=== PATIENT | female | born 1985 | race Caucasian/White ===

== ENCOUNTER 2021-04-15 18:17 | Emergency (ER) | payer OTHER ==
[2021-04-15] MEDS ORDERED: LORazepam 2 MG/ML INJ IV STA ×2 (18:20→18:56)
[2021-04-15] MEDS ORDERED: SODIUM CHLORIDE 0.9% 500 ML 500 ML IV STA (18:20)
[2021-04-15 18:37] LABS: Appearance,Urine Clear (Clear); Bilirubin,Urine Negative (Negative); Blood,Urine Negative (Negative); Color,Urine Light Yellow; Glucose,Urine (UA) Negative (Negative); Ketones,Urine Negative (Negative); Leukocyte Esterase,Urine Moderate (Negative); Nitrite,Urine Negative (Negative); Protein,Urine Negative (Negative); Specific Gravity,Urine 1.005 (1.001-1.035); Squamous Epithelial Cell,Urine 1 /hpf (0-4); Urobilinogen,Urine <2.0 mg/dL (<2.0); WBC,Urine 1 /hpf (0-5)
[2021-04-15 18:40] LABS: Basophils % (A) 0 %; Eosinophils # (A) 0.1 k/uL (0-0.7); Eosinophils % (A) 1 %; HCT 36.6 % (34.0-46.0); HGB 12.4 gm/dL (11.4-16.0); Lymphocytes # (A) 1.2 k/uL (1.0-4.8); Lymphocytes % (A) 17 %; MCH 31.6 pg (25.0-35.0); Mean Platelet Volume 7.4; Monocytes # (A) 0.2 k/uL (0-1.0); Monocytes % (A) 3 %; Neutrophils # (A) 5.6 k/uL (1.3-7.7); Neutrophils % (A) 77 %; Platelet Count 229 k/uL (150-450); RBC 3.93 m/uL (3.80-5.40); RDW 12.7 % (11.5-15.5); WBC 7.2 k/uL (3.8-10.6)
[2021-04-15 18:50] LABS: ALT 22 U/L (4-34); AST 29 U/L (14-36); Acetaminophen <10.0 ug/mL; African American GFR (CKD) >90 (>60 ml/min/1.73 sqM); Alcohol <10 mg/dL; Alkaline Phosphatase 96 U/L (38-126); Anion Gap 9 mmol/L; Blood Urea Nitrogen 9 mg/dL (7-17); Calcium 9.5 mg/dL (8.4-10.2); Carbon Dioxide 18 mmol/L (22-30); Chloride 107 mmol/L (98-107); Glucose 95 mg/dL (74-99); Non-African American GFR(CKD) >90 (>60 ml/min/1.73 sqM); Potassium 4.4 mmol/L (3.5-5.1); Salicylate <1.0 mg/dL; Sodium 134 mmol/L (137-145); Total Bilirubin 0.3 mg/dL (0.2-1.3); Total Protein 6.8 g/dL (6.3-8.2)
[2021-04-15] MEDS ORDERED: levETIRAcetam IV 1,000 MG in SALINE 1 100ML.BAG IVPB STA (19:19)
--- NOTE | 2021-04-15 19:25 | ED ---
General Adult HPI - General Chief complaint: Seizure Stated complaint: seizure Time Seen by Provider: 04/15/21 18:20 Source: patient, RN notes reviewed, old records reviewed Mode of arrival: ambulatory Limitations: no limitations - History of Present Illness Initial comments: 35-year-old female presenting from [facility] with seizure. Patient had rec urrent seizures lasting up to 1 minute. She states that she began feeling bilateral hand cramps and numbness after taking Suboxone. She had taken 2 doses this afternoon beginning at approximately 2 PM. 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 Denied alcohol abuse. Patient was transported for urgent evaluation. She did have a seizure with EMS lasting less than 1 minute. This was tonic- clonic. She was previously treated for seizure disorder on Keppra but had been seizure free for a long period time and had her Keppra discontinued. She is currently not on any antiepileptics. - Related Data Home Medications Medication Instructions Recorded Confirmed Acetaminophen [Tylenol 8 Hour] 650 mg PO TID PRN 04/15/21 04/15/21 Calcium,Magnes,Zinc,Vit D3 1 tab PO TID PRN 04/15/21 04/15/21 Chlorpheniramine Maleate 4 mg PO Q4H PRN 04/15/21 04/15/21 Docusate [Colace] 100 mg PO BID PRN 04/15/21 04/15/21 Ibuprofen [Motrin Ib] 600 mg PO Q8H PRN 04/15/21 04/15/21 Magnesium Hydroxide [Milk of 2,400 mg PO BID PRN 04/15/21 04/15/21 Magnesia] Omeprazole *Unknown Strength* 1 dose PO DAILY PRN 04/15/21 04/15/21 Subutex 4mg 4 mg SL DIRECTED 04/15/21 04/15/21 cloNIDine HCL [Catapres] 0.1 mg PO Q4H PRN 04/15/21 04/15/21 ondansetron HCL [Zofran] 8 mg PO Q6H PRN 04/15/21 04/15/21 traZODone HCL [Desyrel] 50 - 150 mg PO HS PRN 04/15/21 04/15/21 Previous Rx's Medication Instructions Recorded levETIRAcetam [Keppra] 500 mg PO BID #60 tab 04/15/21 Allergies Allergy/AdvReac Type Severity Reaction Status Date / Time No Known Allergies Allergy Verified 04/15/21 18:41 Review of Systems ROS Statement: Those systems with pertinent positive or pertinent negative responses have been documented in the HPI. ROS Other: All systems not noted in ROS Statement are negative. Past Medical History Past Medical History: Seizure Disorder History of Any Multi-Drug Resistant Organisms: None Reported Past Surgical History: Orthopedic Surgery Past Psychological History: No Psychological Hx Reported Smoking Status: Current every day smoker Past Alcohol Use History: None Reported Past Drug Use History: Heroin General Exam Limitations: no limitations General appearance: alert, anxious Head exam: Present: atraumatic, normocephalic Eye exam: Present: normal appearance, PERRL ENT exam: Present: normal exam Neck exam: Present: normal inspection. Absent: tenderness, meningismus Respiratory exam: Present: normal lung sounds bilaterally. Absent: respiratory distress, wheezes Cardiovascular Exam: Present: regular rate, normal rhythm Extremities exam: Present: other (Bilateral hand spasm) Neurological exam: Present: alert, oriented X3, CN II-XII intact. Absent: motor sensory deficit Psychiatric exam: Present: normal affect, normal mood Skin exam: Present: warm, dry, intact. Absent: cyanosis, diaphoretic Course Vital Signs 04/15/21 18:19 Temperature 99.5 F Pulse Rate 104 H Respiratory 18 Rate Blood Pressure 129/79 EKG Findings - EKG Comments: EKG Findings:: EKG: Normal sinus rhythm, rate of 98, NE interval 146, QRS duration 78, QTC 446, no ST segment elevation. Medical Decision Making - Medical Decision Making 35-year-old female presented with recurrent seizure and opiate withdrawal. Given IV fluid, Ativan upon arrival. Loaded with Keppra she was previously on this medication. She did have some carpal spasm. No focal neurological findings. Patient has stable vitals. She is in sinus rhythm. She has normal CBC, normal CMP, normal calcium, normal ionized calcium. Normal magnesium. Normal urinalysis. She had been given IV fluids, Ativan and Keppra in the emergency prompt. Feeling better. She will be restarted on Keppra and given follow-up with neurology. Return parameters were discussed. - Lab Data Result diagrams: 04/15/21 18:27 04/15/21 18:27 Lab Results 04/15/21 04/15/21 04/15/21 Range/Units 18:27 18:27 18:27 WBC 7.2 (3.8-10.6) k/uL RBC 3.93 (3.80-5.40) m/uL Hgb 12.4 (11.4-16.0) gm/dL Hct 36.6 (34.0-46.0) % MCV 93.0 (80.0-100.0) fL MCH 31.6 (25.0-35.0) pg MCHC 34.0 (31.0-37.0) g/dL RDW 12.7 (11.5-15.5) % Plt Count 229 (150-450) k/uL MPV 7.4 Neutrophils % 77 % Lymphocytes % 17 % Monocytes % 3 % Eosinophils % 1 % Basophils % 0 % Neutrophils # 5.6 (1.3-7.7) k/uL Lymphocytes # 1.2 (1.0-4.8) k/uL Monocytes # 0.2 (0-1.0) k/uL Eosinophils # 0.1 (0-0.7) k/uL Basophils # 0.0 (0-0.2) k/uL Sodium 134 L (137-145) mmol/L Potassium 4.4 (3.5-5.1) mmol/L Chloride 107 (98-107) mmol/L Carbon Dioxide 18 L (22-30) mmol/L Anion Gap 9 mmol/L BUN 9 (7-17) mg/dL Creatinine 0.67 (0.52-1.04) mg/dL Est GFR (CKD-EPI)AfAm >90 (>60 ml/min/1.73 sqM) Est GFR (CKD-EPI)NonAf >90 (>60 ml/min/1.73 sqM) Glucose 95 (74-99) mg/dL Calcium 9.5 (8.4-10.2) mg/dL Ionized Calcium Rosaline 5.0 (4.5-5.3) mg/dL Magnesium 2.0 (1.6-2.3) mg/dL Total Bilirubin 0.3 (0.2-1.3) mg/dL AST 29 (14-36) U/L ALT 22 (4-34) U/L Alkaline Phosphatase 96 (38-126) U/L Total Protein 6.8 (6.3-8.2) g/dL Albumin 4.0 (3.5-5.0) g/dL Urine Color Light Yellow Urine Appearance Clear (Clear) Urine pH 8.0 (5.0-8.0) Ur Specific [place] 1.005 (1.001-1.035) Urine Protein Negative (Negative) Urine Glucose (UA) Negative (Negative) Urine Ketones Negative (Negative) Urine Blood Negative (Negative) Urine Nitrite Negative (Negative) Urine Bilirubin Negative (Negative) Urine Urobilinogen <2.0 (<2.0) mg/dL Ur Leukocyte Esterase Moderate H (Negative) Urine WBC 1 (0-5) /hpf Ur Squamous Epith Cells 1 (0-4) /hpf Salicylates <1.0 mg/dL Acetaminophen <10.0 ug/mL Serum Alcohol <10 mg/dL Disposition Clinical Impression: Generalized seizure Disposition: HOME SELF-CARE Instructions (If sedation given, give patient instructions): Recurrent Seizures in Adults (ED), Seizure/Epilepsy Discharge Instructions & Follow-Up Prescriptions: levETIRAcetam [Keppra] 500 mg PO BID #60 tab Is patient prescribed a controlled substance at d/c from ED?: No Referrals: None,Stated [Primary Care Provider] - 1-2 days Lito Barajas MD [REFERRING] - 1-2 days Time of Disposition: 19:32
[2021-04-15] MEDS ORDERED: levETIRAcetam 500 MG TAB PO STA ×2 (19:55→20:47)
[2021-04-15 21:05] VITALS: BP 116/76; PULSE 91; RESP 16; TEMP 99.1
== END 2021-04-15 21:18 | disposition home or self-care (01) ==
LOC: EC 18:17
DX: G40.909 Epilepsy, unspecified, not intractable, without status epilepticus (principal); F17.200 Nicotine dependence, unspecified, uncomplicated
CPT/HCPCS: 36415; 93005; 80053; 82330; 83735; 85025; 81001; 80143; 80179; 99284; 96365; 96375; G0480; J2060; J1953; 80320

== ENCOUNTER → 2021-04-23 | Outpatient (CLI) | payer OTHER ==
[2021-04-24 02:03] LABS: African American GFR (CKD) 112.3 (60.0-200.0); Albumin 4.4 g/dL (3.80-4.90); Albumin/Globulin Ratio 1.69 (1.60-3.17); Anion Gap 9.8 mmol/L (4.00-12.00); Calcium 9.4 mg/dL (8.7-10.3); Carbon Dioxide 21.2 mmol/L (21.6-31.8); Globulin 2.6 g/dL (1.6-3.3); Non-African American GFR(CKD) 96.9 (60.0-200.0); Potassium 4.6 mmol/L (3.5-5.5); Total Bilirubin 0.1 mg/dL (0.2-1.2)
== END | disposition home or self-care (01) ==
LOC: LABWHC1 15:29
PROVIDERS: ATTEND General Practice
DX: Z51.81 Encounter for therapeutic drug level monitoring (principal); Z79.891 Long term (current) use of opiate analgesic
CPT/HCPCS: 36415; 80053

== ENCOUNTER → 2021-04-26 | Outpatient (CLI) | payer OTHER ==
[2021-04-27 17:57] LABS: African American GFR (CKD) 112.3 (60.0-200.0); Albumin 4.4 g/dL (3.80-4.90); Anion Gap 11.6 mmol/L (4.00-12.00); BUN/Creat Ratio 12.5 Ratio (12.00-20.00); Calcium 9.1 mg/dL (8.7-10.3); Carbon Dioxide 19.4 mmol/L (21.6-31.8); Globulin 2.2 g/dL (1.6-3.3); Non-African American GFR(CKD) 96.9 (60.0-200.0); Potassium 4.3 mmol/L (3.5-5.5); Total Bilirubin 0.2 mg/dL (0.3-1.2); Total Protein 6.6 g/dL (6.2-8.2)
== END | disposition home or self-care (01) ==
LOC: LABWHC1 14:52
PROVIDERS: ATTEND General Practice
DX: Z51.81 Encounter for therapeutic drug level monitoring (principal); Z79.891 Long term (current) use of opiate analgesic
CPT/HCPCS: 36415; 80053

== ENCOUNTER 2021-05-04 09:37 | Emergency (ER) | payer OTHER ==
[2021-05-04 09:46] VITALS: RESP 18; TEMP 98.1
[2021-05-04] MEDS ORDERED: SODIUM CHLORIDE 0.9% 1,000 ML IV STA (10:42)
[2021-05-04] MEDS ORDERED: IPRATROPIUM-ALBUTEROL 3 ML NEB INHALATION STA (10:43)
[2021-05-04] MEDS ORDERED: methylPREDNISolone SOD SUCCI 125 MG/2 ML VIAL IV STA (10:43)
--- NOTE | 2021-05-04 10:54 | ED ---
General Adult HPI - General Chief complaint: Shortness of Breath Stated complaint: ELIJAH Time Seen by Provider: 05/04/21 10:06 Source: patient, EMS, RN notes reviewed Mode of arrival: EMS - History of Present Illness Initial comments: 35-year-old female with a past medical history of asthma presents to the emergency room for a chief complaint of shortness of breath. For the past 5 days patient has had a productive cough. She states now her voice is going. Patient states she is currently at [facility] for heroin use. Her last use was 22 days ago. She has been on amoxicillin for the past 4 or 5 days from [facility]. She has also been using albuterol. When the EMS was called the gave her a DuoNeb and it helped more. Patient denies fevers. Denies chest pain.Patient has no other complaints at this time including shortness of breath, chest pain, abdominal pain, nausea or vomiting, headache, or visual changes. - Related Data Home Medications Medication Instructions Recorded Confirmed Acetaminophen [Tylenol 8 Hour] 650 mg PO TID PRN 04/15/21 04/15/21 Calcium,Magnes,Zinc,Vit D3 1 tab PO TID PRN 04/15/21 04/15/21 Chlorpheniramine Maleate 4 mg PO Q4H PRN 04/15/21 04/15/21 Docusate [Colace] 100 mg PO BID PRN 04/15/21 04/15/21 Ibuprofen [Motrin Ib] 600 mg PO Q8H PRN 04/15/21 04/15/21 Magnesium Hydroxide [Milk of 2,400 mg PO BID PRN 04/15/21 04/15/21 Magnesia] Omeprazole *Unknown Strength* 1 dose PO DAILY PRN 04/15/21 04/15/21 Subutex 4mg 4 mg SL DIRECTED 04/15/21 04/15/21 cloNIDine HCL [Catapres] 0.1 mg PO Q4H PRN 04/15/21 04/15/21 ondansetron HCL [Zofran] 8 mg PO Q6H PRN 04/15/21 04/15/21 traZODone HCL [Desyrel] 50 - 150 mg PO HS PRN 04/15/21 04/15/21 Previous Rx's Medication Instructions Recorded levETIRAcetam [Keppra] 500 mg PO BID #60 tab 04/15/21 Benzonatate [Tessalon Perles] 200 mg PO Q8H PRN #15 cap 05/04/21 Ipratropium-Albuterol Nebulize 3 ml INHALATION Q4-6H PRN #90 ml 05/04/21 [Duoneb 0.5 mg-3 mg/3 ml Soln] guaiFENesin [Mucinex] 600 mg PO Q12HR PRN #20 tab 05/04/21 predniSONE 50 mg PO DAILY #4 tablet 05/04/21 Allergies Allergy/AdvReac Type Severity Reaction Status Date / Time No Known Allergies Allergy Verified 04/15/21 18:41 Review of Systems ROS Statement: Those systems with pertinent positive or pertinent negative responses have been documented in the HPI. ROS Other: All systems not noted in ROS Statement are negative. Past Medical History Past Medical History: Asthma, Seizure Disorder History of Any Multi-Drug Resistant Organisms: None Reported Past Surgical History: Orthopedic Surgery Additional Past Surgical History / Comment(s): november 2020 right shoulder surger. Past Psychological History: No Psychological Hx Reported Smoking Status: Current every day smoker Past Alcohol Use History: None Reported Past Drug Use History: Heroin General Exam General appearance: alert, in no apparent distress Head exam: Present: atraumatic Eye exam: Present: normal appearance, PERRL, EOMI. Absent: scleral icterus, conjunctival injection ENT exam: Present: normal exam, mucous membranes moist Neck exam: Present: normal inspection, full ROM. Absent: tenderness Respiratory exam: Present: wheezes (Wheezing in all lung jefferson). Absent: respiratory distress Cardiovascular Exam: Present: regular rate, normal rhythm, normal heart sounds Course Vital Signs 05/04/21 05/04/21 05/04/21 09:40 11:08 11:20 Temperature 98.1 F Pulse Rate 89 89 88 Respiratory 18 18 18 Rate Blood Pressure 111/66 O2 Sat by Pulse 97 Oximetry Medical Decision Making - Medical Decision Making Vitals are stable. Patient is well-appearing. No respiratory distress. She does have wheezing on exam. Patient was given DuoNeb which helped significantly compared to the albuterol back at her facility. Laboratory evaluation was unremarkable. Coronavirus is negative. Chest x-ray showed no acute process. P pino was also given a dose of Solu-Medrol. At this time patient is stable for discharge home with steroids and is symptomatically treatment. She will finish the amoxicillin course that she was put on by [facility] [facility]. We will switch her from albuterol to DuoNeb. She will follow-up with her doctor and return here for any worsening symptoms. - Lab Data Result diagrams: 05/04/21 11:48 05/04/21 10:50 Lab Results 05/04/21 05/04/21 05/04/21 Range/Units 10:50 10:50 11:48 WBC 8.7 (3.8-10.6) k/uL RBC 4.72 (3.80-5.40) m/uL Hgb 15.0 (11.4-16.0) gm/dL Hct 44.8 (34.0-46.0) % MCV 94.8 (80.0-100.0) fL MCH 31.8 (25.0-35.0) pg MCHC 33.5 (31.0-37.0) g/dL RDW 13.2 (11.5-15.5) % Plt Count 246 (150-450) k/uL MPV 7.4 Neutrophils % 69 % Lymphocytes % 24 % Monocytes % 4 % Eosinophils % 0 % Basophils % 1 % Neutrophils # 6.0 (1.3-7.7) k/uL Lymphocytes # 2.1 (1.0-4.8) k/uL Monocytes # 0.3 (0-1.0) k/uL Eosinophils # 0.0 (0-0.7) k/uL Basophils # 0.1 (0-0.2) k/uL Sodium 137 (137-145) mmol/L Potassium 4.8 (3.5-5.1) mmol/L Chloride 109 H (98-107) mmol/L Carbon Dioxide 20 L (22-30) mmol/L Anion Gap 8 mmol/L BUN 6 L (7-17) mg/dL Creatinine 0.54 (0.52-1.04) mg/dL Est GFR (CKD-EPI)AfAm >90 (>60 ml/min/1.73 sqM) Est GFR (CKD-EPI)NonAf >90 (>60 ml/min/1.73 sqM) Glucose 85 (74-99) mg/dL Calcium 9.2 (8.4-10.2) mg/dL Coronavirus (PCR) Not Detected (Not Detectd) Disposition Clinical Impression: Cough Disposition: HOME SELF-CARE Condition: Good Instructions (If sedation given, give patient instructions): Acute Bronchitis (ED) Additional Instructions: Please use DuoNeb and said of albuterol. Please start prednisone tomorrow as you were given a dose IV here in the emergency room. You can continue the amoxicillin. Take other medications as directed. Follow up with primary care. Return to the emergency room for any worsening symptoms. Prescriptions: Ipratropium-Albuterol Nebulize [Duoneb 0.5 mg-3 mg/3 ml Soln] 3 ml INHALATION Q4-6H PRN #90 ml PRN Reason: Shortness Of Breath guaiFENesin [Mucinex] 600 mg PO Q12HR PRN #20 tab PRN Reason: Congestion predniSONE 50 mg PO DAILY #4 tablet Benzonatate [Tessalon Perles] 200 mg PO Q8H PRN #15 cap PRN Reason: Cough Is patient prescribed a controlled substance at d/c from ED?: No Referrals: Katt Estevez MD [STAFF PHYSICIAN] - 1-2 days Time of Disposition: 12:32
[2021-05-04 11:12] LABS: African American GFR (CKD) >90 (>60 ml/min/1.73 sqM); Anion Gap 8 mmol/L; Blood Urea Nitrogen 6 mg/dL (7-17); Calcium 9.2 mg/dL (8.4-10.2); Carbon Dioxide 20 mmol/L (22-30); Chloride 109 mmol/L (98-107); Glucose 85 mg/dL (74-99); Non-African American GFR(CKD) >90 (>60 ml/min/1.73 sqM); Potassium 4.8 mmol/L (3.5-5.1); Sodium 137 mmol/L (137-145)
--- NOTE | 2021-05-04 11:45 | XR ---
EXAMINATION TYPE: XR chest 2V DATE OF EXAM: 05/04/2021 COMPARISON: NONE HISTORY: Chest pain TECHNIQUE: Frontal and lateral views of the chest are obtained. FINDINGS: There is no focal air space opacity. No evidence for pneumothorax. No pleural effusion. The cardiac silhouette size is within normal limits. The osseous structures are grossly intact. IMPRESSION: 1. No acute cardiopulmonary process.
[2021-05-04 12:07] LABS: Basophils # (A) 0.1 k/uL (0-0.2); Basophils % (A) 1 %; Eosinophils % (A) 0 %; HCT 44.8 % (34.0-46.0); Lymphocytes # (A) 2.1 k/uL (1.0-4.8); Lymphocytes % (A) 24 %; MCH 31.8 pg (25.0-35.0); MCHC 33.5 g/dL (31.0-37.0); MCV 94.8 fL (80.0-100.0); Mean Platelet Volume 7.4; Monocytes # (A) 0.3 k/uL (0-1.0); Monocytes % (A) 4 %; Neutrophils % (A) 69 %; Platelet Count 246 k/uL (150-450); RBC 4.72 m/uL (3.80-5.40); RDW 13.2 % (11.5-15.5); WBC 8.7 k/uL (3.8-10.6)
[2021-05-04 12:31] VITALS: BP 123/56; PULSE 95
== END 2021-05-04 12:42 | disposition home or self-care (01) ==
LOC: EC 09:37
DX: R05 Cough (principal); R06.02 Shortness of breath; J45.909 Unspecified asthma, uncomplicated; F17.200 Nicotine dependence, unspecified, uncomplicated; Z20.822 Contact with and (suspected) exposure to COVID-19
CPT/HCPCS: 36415; 94640; 80048; 85025; 87635; 71046; 99285; 96374; 96361; J2930